=== PATIENT | female | born 1970 | race American Indian/Alaskan Native ===

== ENCOUNTER 2019-01-12 07:51 | Observation (INO) | payer BC ==
[2019-01-12] MEDS ORDERED: SUCRALFATE 1 GM/10 ML ORAL LIQD PO ONE (08:06)
[2019-01-12] MEDS ORDERED: FAMOTIDINE 20 MG/2 ML INJ IV ONE (08:06)
--- NOTE | 2019-01-12 08:07 | Emergency Department Report ---
ED Chest Pain HPI - General Chief Complaint: Chest Pain Stated Complaint: CHEST PAIN Time Seen by Provider: 01/12/19 08:04 Source: patient, family, EMS (verbal report received from EMS.ems notes not available at time of chart dictation), physical therapy professor, RN notes reviewed Limitations: No Limitations - History of Present Illness Initial Comments: This is a 48-year-old female, who is not known to this provider previously. The patient states that her primary care doctor is Dr. Fontaine. 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 She denies a history of chronic medical conditions that she is aware. She has no family history of heart disease or thromboembolic disease that she is aware of, believes that her father passed from cancer. She is brought to the hospital by emergency medical services for complaint of chest pain. Chest pain is substantial, and is associated with back pain and radiation. There is shortness of breath, and pleuritic pain. To me, the patient describes no nausea or diaphoresis. The patient was given aspirin and nitroglycerin in the field. The patient states that she's never had pain like this before. The patient indicates no DVT or pulmonary embolism risk factors. The patient indicates no history of cardiac stress test or cardiac risk stratification that she is aware of. MD Complaint: chest pain, other -: Sudden Onset: during rest Pain Location: substernal Pain Radiation: back Severity: moderate Quality: aching Consistency: constant Improves With: nothing Worsens With: nothing re: dyspnea Treatments Prior to Arrival: aspirin, nitroglycerin - Related Data Allergies Allergy/AdvReac Type Severity Reaction Status Date / Time Penicillins Allergy Unknown Verified 01/12/19 08:07 Heart Score - HEART Score History: Moderately suspicious EKG: Non-specific Age: 45-65 Risk factors: No known risk factors Troponin: < normal limit HEART Score: 3 - Critical Actions Critical Actions: 0-3 pts:0.9-1.7%risk of adverse cardiac event.Candidate for discharge ED Review of Systems ROS: Stated complaint: CHEST PAIN Other details as noted in HPI Constitutional: malaise. denies: fever Eyes: denies: eye discharge ENT: denies: congestion Respiratory: shortness of breath Cardiovascular: chest pain Gastrointestinal: denies: vomiting Genitourinary: denies: dysuria Musculoskeletal: back pain Skin: denies: lesions Neurological: weakness Psychiatric: anxiety ED Physical Exam - General Limitations: No Limitations General appearance: alert, anxious, in distress - Head Head exam: Present: atraumatic, normocephalic - Eye Eye exam: Present: normal appearance, EOMI. Absent: nystagmus - ENT ENT exam: Present: normal exam, normal orophraynx, mucous membranes moist, normal external ear exam - Neck Neck exam: Present: normal inspection, full ROM. Absent: tenderness, meningismus - Respiratory Respiratory exam: Present: normal lung sounds bilaterally. Absent: respiratory distress - Cardiovascular Cardiovascular Exam: Present: regular rate, normal rhythm, normal heart sounds. Absent: bradycardia, tachycardia, irregular rhythm, systolic murmur, diastolic murmur, rubs, gallop - GI/Abdominal GI/Abdominal exam: Present: soft. Absent: distended, tenderness, guarding, roxanne ound, rigid, pulsatile mass - Extremities Exam Extremities exam: Present: normal inspection, full ROM, other (2+ pulses noted in the bilateral upper, lower extremities. Compartments soft. No long bony tenderness. The pelvis is stable.). Absent: pedal edema, joint swelling, calf tenderness - Back Exam Back exam: Present: normal inspection, full ROM. Absent: tenderness, CVA tenderness (R), CVA tenderness (L), paraspinal tenderness, vertebral tenderness - Neurological Exam Neurological exam: Present: alert, other (Extraocular movements intact. Tongue midline. No facial droop. Facial sensation intact to light touch in the V1, V2, V3 distribution bilaterally. 5 and 5 strength in 4 extremities.. Sensation is intact to light touch in 4 extremities.) - Psychiatric Psychiatric exam: Present: anxious - Skin Skin exam: Present: warm, dry, intact, normal color. Absent: rash ED Course Vital Signs 01/12/19 01/12/19 01/12/19 08:04 08:06 08:15 Temperature Pulse Rate 75 75 Respiratory 21 19 Rate Blood Pressure Blood Pressure 170/80 [Left] O2 Sat by Pulse 100 98 Oximetry 01/12/19 01/12/19 01/12/19 08:19 08:20 08:46 Temperature 98.4 F Pulse Rate 80 66 Respiratory 22 18 20 Rate Blood Pressure 182/100 Blood Pressure 169/85 [Left] O2 Sat by Pulse 100 100 100 Oximetry 01/12/19 01/12/19 01/12/19 09:10 09:20 09:30 Temperature Pulse Rate 61 64 74 Respiratory 14 14 12 Rate Blood Pressure 125/75 182/100 182/100 Blood Pressure 125/75 [Left] O2 Sat by Pulse 99 98 99 Oximetry 01/12/19 01/12/19 01/12/19 09:40 09:50 10:00 Temperature Pulse Rate 72 71 64 Respiratory 18 12 13 Rate Blood Pressure 182/100 182/100 129/79 Blood Pressure [Left] O2 Sat by Pulse 100 99 100 Oximetry 01/12/19 01/12/19 01/12/19 10:10 10:20 10:30 Temperature Pulse Rate 69 72 73 Respiratory 10 L 19 15 Rate Blood Pressure 129/79 129/79 129/79 Blood Pressure [Left] O2 Sat by Pulse 97 98 100 Oximetry 01/12/19 01/12/19 01/12/19 10:40 10:50 11:00 Temperature Pulse Rate 74 60 63 Respiratory 15 15 16 Rate Blood Pressure 129/79 129/79 126/77 Blood Pressure [Left] O2 Sat by Pulse 98 99 99 Oximetry 01/12/19 01/12/19 01/12/19 11:10 11:20 11:30 Temperature Pulse Rate 62 80 76 Respiratory 16 21 10 L Rate Blood Pressure 126/77 126/77 126/77 Blood Pressure [Left] O2 Sat by Pulse 98 97 100 Oximetry 01/12/19 01/12/19 01/12/19 11:40 11:50 12:00 Temperature Pulse Rate 78 71 74 Respiratory 14 13 20 Rate Blood Pressure 126/77 126/77 123/74 Blood Pressure [Left] O2 Sat by Pulse 100 97 98 Oximetry 01/12/19 01/12/19 01/12/19 12:10 12:20 12:30 Temperature Pulse Rate 65 74 73 Respiratory 16 15 11 L Rate Blood Pressure 123/74 123/74 123/74 Blood Pressure [Left] O2 Sat by Pulse 100 99 97 Oximetry 01/12/19 01/12/19 12:40 12:50 Temperature Pulse Rate 68 71 Respiratory 16 15 Rate Blood Pressure 123/74 123/74 Blood Pressure [Left] O2 Sat by Pulse 100 98 Oximetry - Reevaluation(s) Reevaluation #1: 01/12/19 09:15 Differential diagnosis, including but not limited to: Pleuritis, pneumonia, pulmonary embolism, GERD, gastritis, hiatal hernia, acute coronary syndrome, pericarditis, myocarditis Assessment and plan: 48-year-old middle-aged -[place] female, with cause atypical pain, concerning for possible acute coronary syndrome, manifested by shortness of breath, with a pleuritic component, new onset chest pain that radiates to the back. She is not tachycardic and she is not hypoxic. She does not endorse any DVT or pulmonary embolism risk factors. She is low risk by well's criteria. Nevertheless, d-dimer screening test is sent Found to have elevated blood pressure, uncertain if the patient has chronic hypertension, or simple anxiety/pain. Heart score may be 3 or 4, depending on whether or not hypertension is chronic or new onset. We will treat her symptoms, obtain screening laboratory studies, and then reassess. Given new onset chest pain, radiation to back, shortness of breath, patient appeared uncomfortable, anticipated admission for expedited cardiac risk stratification. Reevaluation #2: 01/12/19 11:32 Dr Minor to admit for cardiac risk stratification. Discussed this with the patient, who is amenable to hospitalization for urgent cardiac risk stratification. ELIEZER score - Eliezer Score Age > 65: (0) No Aspirin use within the Past 7 Days: (0) No 3 or more CAD Risk Factors: (0) No 2 or more Angina events in past 24 hrs: (0) No Known CAD with more than 50% Stenosis: (0) No Elevated Cardiac Markers: (0) No ST Deviation Greater than 0.5mm: (0) No ELIEZER Score: 0 ED Medical Decision Making - Lab Data Result diagrams: 01/12/19 08:36 01/12/19 08:36 Vital Signs 01/12/19 01/12/19 01/12/19 08:04 08:06 08:15 Temperature Pulse Rate 75 75 Respiratory 21 19 Rate Blood Pressure Blood Pressure 170/80 [Left] O2 Sat by Pulse 100 98 Oximetry 01/12/19 01/12/19 01/12/19 08:19 08:20 08:46 Temperature 98.4 F Pulse Rate 80 66 Respiratory 22 18 20 Rate Blood Pressure 182/100 Blood Pressure 169/85 [Left] O2 Sat by Pulse 100 100 100 Oximetry 01/12/19 09:10 Temperature Pulse Rate 67 Respiratory 14 Rate Blood Pressure Blood Pressure 125/75 [Left] O2 Sat by Pulse 99 Oximetry Lab Results 01/12/19 Range/Units 08:36 WBC 6.9 (4.5-11.0) K/mm3 RBC 4.64 (3.65-5.03) M/mm3 Hgb 14.2 (10.1-14.3) gm/dl Hct 41.6 (30.3-42.9) % MCV 90 (79-97) fl MCH 31 (28-32) pg MCHC 34 (30-34) % RDW 13.6 (13.2-15.2) % Plt Count 312 (140-440) K/mm3 - EKG Data -: EKG Interpreted by Sc EKG shows normal: sinus rhythm Rate: normal - EKG Data When compared to previous EKG there are: previous EKG unavailable 01/12/19 09:18 There is no prior EKG available for comparison. This is a sinus rhythm, 72 bpm, normal axis, QTC is 435 ms, there is low voltage, there is motion artifact, there is borderline left ventricular hypertrophy, the EKG is abnormal, the EKG is not consistent with ST elevation myocardial infarction. - Radiology Data Radiology results: pending, image reviewed X-ray the chest is negative for acute disease Critical care attestation.: If time is entered above; I have spent that time in minutes in the direct care of this critically ill patient, excluding procedure time. ED Disposition Clinical Impression: Acute chest pain, Pleurisy Disposition: OP ADMIT IP TO THIS HOSP Is pt being admited?: Yes Condition: Good
[2019-01-12] MEDS ORDERED: MIDAZOLAM 2 MG/2 ML INJ IV NR (08:35)
[2019-01-12] MEDS ORDERED: NITROGLYCERIN 0.4 MG TAB SUBL SL PRN (08:36)
--- NOTE | 2019-01-12 08:36 | XRay Report ---
CHEST 1 VIEW INDICATION: Chest pain for one day. COMPARISON: None FINDINGS: Support devices: None. Heart: Within normal limits. Lungs/Pleura: No acute air space or interstitial disease. Additional findings: None. IMPRESSION: No acute findings. Signer Name: Niels Jerome Jr, MD Signed: 01/12/2019 8:32 AM Workstation Name: [id number]
[2019-01-12] MEDS ORDERED: SODIUM CHLORIDE 0.9% 500 ML 500 ML IV SCH (09:00)
[2019-01-12 09:10] LABS: Hematocrit 41.6 % (30.3-42.9); Hemoglobin 14.2 gm/dl (10.1-14.3); Mean Corpuscular HGB Conc 34 % (30-34); Mean Corpuscular Volume 90 fl (79-97); Platelet Count 312 K/mm3 (140-440); Red Blood Count 4.64 M/mm3 (3.65-5.03); Red Cell Distribution Width 13.6 % (13.2-15.2)
[2019-01-12 09:21] LABS: INR 0.94 (0.87-1.13)
[2019-01-12 09:22] LABS: Partial Thromboplastin Time 26.2 Sec. (24.2-36.6)
[2019-01-12 09:31] LABS: BUN/Creatinine Ratio 16; Blood Urea Nitrogen 13 mg/dL (7-17); Calcium 9.9 mg/dL (8.4-10.2); Hemolysis Index 20
[2019-01-12] MEDS ORDERED: MORPHINE 4 MG/1 ML INJ IV ONE (10:23)
[2019-01-12] MEDS ORDERED: MORPHINE 2 MG/1 ML INJ ONE (10:31)
[2019-01-12] MEDS ORDERED: KETOROLAC 30 MG/1 ML INJ IV ONE (11:32)
[2019-01-12] MEDS ORDERED: KETOROLAC 30 MG/1 ML INJ ONE (12:53)
[2019-01-12] MEDS ORDERED: MORPHINE 2 MG/1 ML INJ IV PRN (20:23)
[2019-01-12] MEDS ORDERED: ACETAMINOPHEN 325 MG TAB PO PRN ×2 (20:23→21:49)
[2019-01-12] MEDS ORDERED: oxyCODONE /ACETAMINOPHEN 5-325MG TAB PO PRN (21:49)
[2019-01-12] MEDS ORDERED: ONDANSETRON 4 MG/2 ML INJ IV PRN (21:49)
[2019-01-12] MEDS ORDERED: HYDROmorphone 1 MG/1 ML INJ IV PRN (21:49)
--- NOTE | 2019-01-12 22:24 | History and Physical Report ---
History of Present Illness Date of examination: 01/12/19 Date of admission: 01/12/19 11:33 Chief complaint: Chest pain since last night. History of present illness: 48-year-old AA female with no significant pmh comes in for L sided chest pain since last night .Chest pain is intermittent and radiating to L side of neck.No diaphoresis or SOB.No palpitations.No exacerbating factors.No recent travel.Also has L interscapular pain which has been chronic.Pain is about 6/10.Dull in character. Past History Past Medical History: No medical history Social history: smoking, full code, other (THc) Family history: hypertension Medications and Allergies Allergies Allergy/AdvReac Type Severity Reaction Status Date / Time Penicillins Allergy Unknown Verified 01/12/19 08:07 Home Medications Medication Instructions Recorded Confirmed Last Taken Type No Known Home Medications [No 01/12/19 01/12/19 Unknown History Reported Home Medications] Active Meds: Active Medications Acetaminophen (Tylenol) 650 mg PO Q4H PRN PRN Reason: Pain, Mild (1-3), fever>100.5 Acetaminophen (Tylenol) 650 mg PO Q4H PRN PRN Reason: Pain MILD(1-3)/Fever >100.5/CARLOS Famotidine (Pepcid) 20 mg PO BID MARY Hydromorphone HCl (Dilaudid) 0.5 mg IV Q3H PRN PRN Reason: Pain , Severe (7-10) Sodium Chloride (Nacl 0.9% 500 Ml) 500 mls @ 50 mls/hr IV DIRECT MARY Morphine Sulfate (Morphine) 2 mg IV Q4H PRN PRN Reason: Pain, Moderate (4-6) Last Admin: 01/12/19 20:34 Dose: 2 mg Documented by: Nitroglycerin (Nitrostat) 0.4 mg SL .Q5MIN PRN PRN Reason: Chest Pain Ondansetron HCl (Zofran) 4 mg IV Q8H PRN PRN Reason: Nausea And Vomiting Oxycodone/Acetaminophen (Percocet 5/325) 1 tab PO Q6H PRN PRN Reason: Pain, Moderate (4-6) Sodium Chloride (Sodium Chloride Flush Syringe 10 Ml) 10 ml IV BID MARY Sodium Chloride (Sodium Chloride Flush Syringe 10 Ml) 10 ml IV PRN PRN PRN Reason: LINE FLUSH Review of Systems All systems: negative Constitutional: no weight loss, no weight gain, no fever, no chills Ears, nose, mouth and throat: no ear pain, no ear discharge, no tinnitis, no decreased hearing Cardiovascular: chest pain, no orthopnea, no palpitations, no rapid/irregular heart beat, no edema, no syncope Respiratory: no cough, no cough with sputum, no excessive sputum, no hemoptysis, no shortness of breath, no dyspnea on exertion Gastrointestinal: no abdominal pain, no nausea, no vomiting, no diarrhea, no constipation, no change in bowel habits, no hematemesis, no coffee ground emesis Genitourinary Female: no urinary frequency, no urgency, no stress incontinence Rectal: no pain Musculoskeletal: no neck stiffness, no neck pain, no shooting arm pain, no arm numbness/tingling, no low back pain, no shooting leg pain Integumentary: no rash, no pruritis, no redness, no sores, no wounds, no jaundice, no boils, no blisters Neurological: no head injury, no seizures, no syncope Psychiatric: no anxiety, no sleep disturbances, no change in appetite Endocrine: no cold intolerance, no heat intolerance, no polyphagia, no excessive thirst Hematologic/Lymphatic: no easy bruising, no easy bleeding Allergic/Immunologic: no urticaria, no allergic rhinitis, no wheezing Exam - Constitutional Vitals: Temp Pulse Resp BP Pulse Ox 97.8 F 70 20 140/72 100 01/12/19 20:00 01/12/19 20:00 01/12/19 20:34 01/12/19 20:00 01/12/19 20:00 General appearance: Present: no acute distress, well-nourished - EENT Eyes: Present: PERRL ENT: hearing intact, clear oral mucosa - Neck Neck: Present: supple, normal ROM - Respiratory Respiratory effort: normal Respiratory: bilateral: CTA - Cardiovascular Heart rate: 78 Rhythm: regular Heart Sounds: Present: S1 & S2. Absent: rub, click - Extremities Extremities: no ischemia, pulses intact, pulses symmetrical, No edema Peripheral Pulses: within normal limits - Abdominal General gastrointestinal: Present: soft, non-tender, non-distended, normal bowel sounds Female genitourinary: Present: normal - Rectal Rectal Exam: deferred - Integumentary Integumentary: Present: clear, warm, dry - Musculoskeletal Musculoskeletal: gait normal, strength equal bilaterally - Psychiatric Psychiatric: appropriate mood/affect, intact judgment & insight - Neurologic Neurologic: CNII-XII intact, moves all extremities - Allied Health Allied health notes reviewed: nursing, case management Results - Labs CBC & Chem 7: 01/12/19 08:36 10 08:36 Labs: Laboratory Last Values WBC 6.9 K/mm3 (4.5-11.0) 01/12/19 08:36 RBC 4.64 M/mm3 (3.65-5.03) 01/12/19 08:36 Hgb 14.2 gm/dl (10.1-14.3) 01/12/19 08:36 Hct 41.6 % (30.3-42.9) 01/12/19 08:36 MCV 90 fl (79-97) 01/12/19 08:36 MCH 31 pg (28-32) 01/12/19 08:36 MCHC 34 % (30-34) 01/12/19 08:36 RDW 13.6 % (13.2-15.2) 01/12/19 08:36 Plt Count 312 K/mm3 (140-440) 01/12/19 08:36 PT 12.3 Sec. (12.2-14.9) 01/12/19 08:36 INR 0.94 (0.87-1.13) 01/12/19 08:36 APTT 26.2 Sec. (24.2-36.6) 01/12/19 08:36 D-Dimer 203.30 ng/mlDDU (0-234) 01/12/19 08:36 Sodium 143 mmol/L (137-145) 01/12/19 08:36 Potassium 4.2 mmol/L (3.6-5.0) 01/12/19 08:36 Chloride 104.3 mmol/L (98-107) 01/12/19 08:36 Carbon Dioxide 25 mmol/L (22-30) 01/12/19 08:36 Anion Gap 18 mmol/L 01/12/19 08:36 BUN 13 mg/dL (7-17) 01/12/19 08:36 Creatinine 0.8 mg/dL (0.7-1.2) 01/12/19 08:36 Estimated GFR > 60 ml/min 01/12/19 08:36 BUN/Creatinine Ratio 16 % 01/12/19 08:36 Glucose 89 mg/dL (65-100) 01/12/19 08:36 Calcium 9.9 mg/dL (8.4-10.2) 01/12/19 08:36 Magnesium 2.10 mg/dL (1.7-2.3) 01/12/19 08:36 Total Creatine Kinase 130 units/L (30-135) 01/12/19 08:36 Troponin T < 0.010 ng/mL (0.00-0.029) 01/12/19 14:03 Short CBC 01/12/19 Range/Units 08:36 WBC 6.9 (4.5-11.0) K/mm3 Hgb 14.2 (10.1-14.3) gm/dl Hct 41.6 (30.3-42.9) % Plt Count 312 (140-440) K/mm3 BMP 01/12/19 08:36 Sodium 143 Potassium 4.2 Chloride 104.3 Carbon Dioxide 25 BUN 13 Creatinine 0.8 Glucose 89 Calcium 9.9 Cardiac Enzymes 01/12/19 01/12/19 01/12/19 Range/Units 08:36 10:58 14:03 Total Creatine Kinase 130 (30-135) units/L Troponin T < 0.010 < 0.010 < 0.010 (0.00-0.029) ng/mL 01/12/19 Range/Units 23:38 Total Creatine Kinase (30-135) units/L Troponin T < 0.010 (0.00-0.029) ng/mL - Imaging and Cardiology EKG: report reviewed (NSR 72/min) Chest x-ray: report reviewed (NAF) Assessment and Plan Advance Directives: Yes (Full code) VTE prophylaxis?: Chemical Plan of care discussed with patient/family: Yes - Patient Problems (1) Acute chest pain Current Visit: Yes Status: Acute Plan to address problem: Chest pain r/o DE protocol Serial troponins (2) Interscapular pain Current Visit: Yes Status: Chronic Plan to address problem: Possible bursitis Meloxicam initiated To cont same till she see's her PCP (3) DVT prophylaxis Current Visit: Yes Status: Acute Plan to address problem: on lovenox and GI prophylaxis
[2019-01-13] MEDS: FAMOTIDINE 20 MG TAB PO SCH ×2 (04:18→11:23)
[2019-01-13 05:56] LABS: Basophils % (Auto) 0.6 % (0.0-1.8); Eosinophils # (Auto) 0.1 K/mm3 (0.0-0.4); Eosinophils % (Auto) 1.9 % (0.0-4.3); Hematocrit 40.2 % (30.3-42.9); Hemoglobin 13.7 gm/dl (10.1-14.3); Lymphocytes # (Auto) 2.7 K/mm3 (1.2-5.4); Lymphocytes % (Auto) 38.9 % (13.4-35.0); Mean Corpuscular HGB Conc 34 % (30-34); Mean Corpuscular Volume 91 fl (79-97); Monocytes # (Auto) 0.6 K/mm3 (0.0-0.8); Monocytes % (Auto) 8.7 % (0.0-7.3); Platelet Count 296 K/mm3 (140-440); Red Blood Count 4.42 M/mm3 (3.65-5.03); Red Cell Distribution Width 14.2 % (13.2-15.2)
[2019-01-13 06:35] LABS: Alanine Aminotransferase 18 units/L (7-56); Albumin 4.1 g/dL (3.9-5); BUN/Creatinine Ratio 23; Blood Urea Nitrogen 18 mg/dL (7-17); Calcium 9.2 mg/dL (8.4-10.2); Hemolysis Index 25
--- NOTE | 2019-01-13 10:38 | Consultation ---
History of Present Illness Consult date: 01/13/19 Requesting physician: YANELIS PARKER Consult reason: chest pain History of present illness: The patient claims that 2 days ago, while getting ready to go to work, she developed shortness of breath followed by pleuritic precordial chest pain which has been occuring intermittently. She claims that when she couldn't "take it anymore", she decided to activate the EMS. Since admission to the hospital, her chest has been occuring mainly when she takes a deep breath. Earlier today, she underwent a treadmill exercise stress test which was negative for ischemia. Her d-dimer level is within normal limits. Past History Past Medical History: No medical history Past Surgical History: No surgical history Social history: denies: smoking, alcohol abuse Family history: denies: CAD Medications and Allergies Allergies Allergy/AdvReac Type Severity Reaction Status Date / Time Penicillins Allergy Unknown Verified 01/12/19 08:07 Home Medications Medication Instructions Recorded Confirmed Last Taken Type No Known Home Medications [No 01/12/19 01/12/19 Unknown History Reported Home Medications] Active Meds: Active Medications Acetaminophen (Tylenol) 650 mg PO Q4H PRN PRN Reason: Pain, Mild (1-3), fever>100.5 Famotidine (Pepcid) 20 mg PO BID [facility] Last Admin: 01/13/19 04:18 Dose: Not Given Documented by: Hydromorphone HCl (Dilaudid) 0.5 mg IV Q3H PRN PRN Reason: Pain , Severe (7-10) Sodium Chloride (Nacl 0.9% 500 Ml) 500 mls @ 50 mls/hr IV DIRECT [facility] Morphine Sulfate (Morphine) 2 mg IV Q4H PRN PRN Reason: Pain, Moderate (4-6) Last Admin: 01/12/19 20:34 Dose: 2 mg Documented by: Nitroglycerin (Nitrostat) 0.4 mg SL .Q5MIN PRN PRN Reason: Chest Pain Ondansetron HCl (Zofran) 4 mg IV Q8H PRN PRN Reason: Nausea And Vomiting Oxycodone/Acetaminophen (Percocet 5/325) 1 tab PO Q6H PRN PRN Reason: Pain, Moderate (4-6) Sodium Chloride (Sodium Chloride Flush Syringe 10 Ml) 10 ml IV BID [facility] Last Admin: 01/13/19 04:18 Dose: Not Given Documented by: Sodium Chloride (Sodium Chloride Flush Syringe 10 Ml) 10 ml IV PRN PRN PRN Reason: LINE FLUSH Review of Systems Constitutional: no fever, no chills Ears, nose, mouth and throat: no ear pain, no ear discharge, no sore throat Cardiovascular: chest pain, no shortness of breath Respiratory: no cough, no hemoptysis, no shortness of breath Gastrointestinal: no abdominal pain, no nausea, no vomiting, no diarrhea, no constipation Genitourinary Female: no dysuria, no urinary frequency Rectal: no pain, no bleeding Musculoskeletal: no neck stiffness, no neck pain, no myalgias Integumentary: no rash, no pruritis Neurological: no weakness, no parathesias, no headaches Endocrine: no cold intolerance, no heat intolerance Hematologic/Lymphatic: no easy bruising, no easy bleeding Allergic/Immunologic: no urticaria, no wheezing Physical Examination Vital Signs Last Vital Signs Temp 98.3 F 01/13/19 07:54 Pulse 68 01/13/19 09:06 Resp 18 01/13/19 07:54 BP 125/67 01/13/19 09:35 Pulse Ox 99 01/13/19 07:54 General appearance: no acute distress HEENT: Positive: EOMI, Normocephaly, Mucus Membranes Moist Neck: Positive: neck supple, trachea midline Cardiac: Positive: Reg Rate and Rhythm, S1/S2 Lungs: Positive: clear to auscultation Neuro: Positive: Grossly Intact Abdomen: Positive: Soft, Active Bowel Sounds. Negative: Tender Skin: Positive: Clear. Negative: Rash Musculoskeletal: Normal Range of Motion Extremities: Present: normal. Absent: edema Results 01/13/19 05:20 01/13/19 05:20 Cardiac Enzymes 01/13/19 Range/Units 05:20 AST 20 (5-40) units/L CBC 01/13/19 Range/Units 05:20 WBC 6.9 (4.5-11.0) K/mm3 RBC 4.42 (3.65-5.03) M/mm3 Hgb 13.7 (10.1-14.3) gm/dl Hct 40.2 (30.3-42.9) % Plt Count 296 (140-440) K/mm3 Lymph # 2.7 (1.2-5.4) K/mm3 Kidder # 0.6 (0.0-0.8) K/mm3 Eos # 0.1 (0.0-0.4) K/mm3 Baso # 0.0 (0.0-0.1) K/mm3 Comprehensive Metabolic Panel 01/13/19 Range/Units 05:20 Sodium 138 (137-145) mmol/L Potassium 4.3 (3.6-5.0) mmol/L Chloride 103.5 (98-107) mmol/L Carbon Dioxide 24 (22-30) mmol/L BUN 18 H (7-17) mg/dL Creatinine 0.8 (0.7-1.2) mg/dL Glucose 90 (65-100) mg/dL Calcium 9.2 (8.4-10.2) mg/dL AST 20 (5-40) units/L ALT 18 (7-56) units/L Alkaline Phosphatase 63 (35-129) units/L Total Protein 7.0 (6.3-8.2) g/dL Albumin 4.1 (3.9-5) g/dL - Imaging and Cardiology EKG: image reviewed EKG interpretations - Telemetry EKG Rhythm: Sinus Rhythm - EKG Sinus rhythms and dysrhythmias: sinus rhythm Assessment and Plan Obtain echocardiogram. Trial of NSAIDs. If there are no significant abnormalities on her echocardiogram, she may be discharged home today to follow- up at our office in one week. - Patient Problems (1) Atypical chest pain Current Visit: Yes Status: Acute (2) Elevated BP without diagnosis of hypertension Current Visit: Yes Status: Acute (3) Obesity Current Visit: Yes Status: Chronic Qualifiers: Obesity type: due to excess calories
[2019-01-13] MEDS ORDERED: IBUPROFEN 600 MG TAB PO PRN (11:43)
[2019-01-13 12:03] VITALS: BP 133/72
--- NOTE | 2019-01-13 12:42 | Discharge Summary ---
Providers - Providers Date of Admission: 01/12/19 11:33 Date of discharge: 01/13/19 Attending physician: ARCADIO PIRES 01/12/19 21:49 Consult to Physician [CONS] Routine Comment: Consulting Provider: WISAM TERRY Physician Instructions: Reason For Exam: Chest pain Primary care physician: MICKY GRESHAM MD Hospitalization Reason for admission: Atypical chest pain Condition: Good Pertinent studies: Underwent stress test which was negative for ischemia Echocardiogram LV function 50-55% Hospital course: 48-year-old AA female with no significant pmh comes in for L sided chest pain and shortness of breath .one-day duration.Chest pain is intermittent and radiating to L side of neck.p atient was admitted symptomatically managed evaluated by the seed packer Underwent stress test which was negative for ischemia Echocardiogram LV function 50-55% Patient's chest pain is atypical probably secondary to GERD Today patient is comfortable in no new complaints or concerns physical examination at discharge is unremarkable Cleared bycardiology for discharge and follow-up as scheduled Patient advised weight reduction when medically stable Patient was stable at discharge Discharge diagnosis: --Atypical chest pain; noncardiac Current Visit: Yes Status: Acute . --GERD;Probably the cause of chest pain -- Elevated BP without diagnosis of hypertension Current Visit: Yes Status: Acute -- Obesity Current Visit: Yes Status: Chronic Disposition: DC-01 TO HOME OR SELFCARE Time spent for discharge: 32 min Core Measure Documentation - Palliative Care Palliative Care/ Comfort Measures: Not Applicable - Core Measures Any of the following diagnoses?: none Exam - Constitutional Vitals: Temp Pulse Resp BP Pulse Ox 98.3 F 75 18 133/72 100 01/13/19 07:54 01/13/19 11:59 01/13/19 07:54 01/13/19 11:59 01/13/19 11:59 General appearance: Present: no acute distress, well-nourished - EENT Eyes: Present: PERRL, EOM intact - Neck Neck: Present: supple, normal ROM - Respiratory Respiratory effort: normal Respiratory: bilateral: diminished, negative: rales, rhonchi, wheezing - Cardiovascular Rhythm: regular Heart Sounds: Present: S1 & S2 - Extremities Extremities: no ischemia, No edema - Abdominal General gastrointestinal: Present: soft, non-tender, non-distended, normal bowel sounds - Integumentary Integumentary: Present: clear, warm - Musculoskeletal Musculoskeletal: strength equal bilaterally, generalized weakness - Psychiatric Psychiatric: appropriate mood/affect, cooperative - Neurologic Neurologic: CNII-XII intact, moves all extremities Plan Activity: no restrictions Diet: regular Follow up with: MARGY SOSA MD [Staff Physician] - 7 Days ([place] office, 01/26/2019 @ 3:00PM) MICKY GRESHAM MD [Primary Care Provider] - 3-5 Days Forms: Work/School Release Form Prescriptions: Ibuprofen [Motrin 600 MG tab] 600 mg PO Q8H PRN #30 tablet PRN Reason: Pain, Mild (1-3)
--- NOTE | 2019-01-14 05:12 | Treadmill Report ---
TREADMILL STRESS TEST REPORT REASON FOR STUDY: Chest pain. STRESS TEST PROTOCOL: The patient completed 10 minutes of a Erick protocol. She attained a peak heart rate of 173 per minute, which is 120% of her age predicted maximum (10.9 mets). No ischemic ECG changes. No chest pain. No arrhythmias. The test was terminated due to fatigue. IMPRESSION: Negative stress test. No evidence of stress-induced ischemia. JOB# [id number] AGO/NTS
== END 2019-01-13 16:24 | disposition home or self-care (01) ==
LOC: ED 07:51 → 4A 11:33
PROVIDERS: ADMIT Internal Medicine; ATTEND Internal Medicine
DX: R07.89 Other chest pain (principal); M25.512 Pain in left shoulder; F17.200 Nicotine dependence, unspecified, uncomplicated
CPT/HCPCS: 36415; 71045; 80048; 80053; 82550; 83036; 83735; 84484; 85025; 85027; 85379; 85610; 85730; 93005; 93010; 93017; 93306; 96374; 96375; 99284; G0378; J1885; J2270